=== PATIENT | female | born 1970 | race Caucasian/White ===

== ENCOUNTER → 2024-12-06 07:56 | Outpatient (REF) | payer BC, SELFPAY | LOC: HWWDC 07:56 | PROVIDERS: ATTENDING PHYSICIAN Obstetrics & Gynecology; FAMILY PHYSICIAN Family Medicine | DX: Z12.31 Encounter for screening mammogram for malignant neoplasm of breast (principal) | CPT/HCPCS: 77063; 77067 ==

== ENCOUNTER 2025-04-08 08:58 | Emergency (ER) | payer BC, SELFPAY ==
[2025-04-08 09:01] VITALS: BP 126/82
--- NOTE | 2025-04-08 09:22 | ED.GENMED ---
History of Present Illness
General
Chief Complaint: Abdominal Symptoms
Source: patient and significant other
Exam Limitations: none
Time Seen by Provider: 04/08/25 09:08
Nursing documentation reviewed up to this point in time: agreed with
History of Present Illness
History of Present Illness:
see MDM
Past History
Past History
ED Past Medical History: GERD, HTN and Other (sleep apnea)
ED Past Surgical History: Cholecystectomy and Orthopedic
Social History
Tobacco: Non-smoker
Alcohol: Occasional
Drug: None
Personal:
Living: with family
Employment: Employed
Review of Systems
Review of Systems
Allergies reviewed?: Yes
All Other Systems: Not applicable
Phy Exam
Physical Exam
Physical Exam:
GENERAL: Alert , in no apparent distress
EYE: pupils equal and reactive
NECK: Supple
ENT: o/p clr, dry mouth
CARDIAC: Regular rate and rhythm .
LUNGS: Clear breath sounds bilaterally, no acute respiratory distress, no wheezes/rales/rhonchi
ABDOMEN: Soft,, mild bloating without focal tenderness, no r/g, no cvat, normal bowel sounds
NEUROLOGICAL: Alert and oriented, no focal neuro deficits
SKIN: Warm and dry, skin intact.
MUSCULOSKELETAL: No edema, well perfused. neg sky's sign
PSYCH: Normal and appropriate interaction.
Course
Orders/Labs/Results
Orders:
Orders
04/08/25 09:15
Electrocardiogram (*1) Urgent
Reason for Study: Chest Pain
0.9% Sodium Chloride 1000 ml [Nss] 1,000 ml IV BOLUS
Famotidine [Pepcid] 20 mg IV NOW STA
Ondansetron Injectable [Zofran] 4 mg IV NOW STA
04/08/25 09:16
EKG- Treatment ONCE
04/08/25 09:36
Complete Blood Count/With Diff Urgent
Troponin I Urgent
04/08/25 09:42
Add On- LAB Urgent
Tests Added?: magnesium
04/08/25 11:13
Sucralfate Suspension [Carafate Suspension] 1 gm PO NOW STA
04/08/25 11:47
EKG- Treatment ONCE
04/08/25 11:59
0.9% Sodium Chloride 1000 ml [Nss] 1,000 ml IV BOLUS
04/08/25 12:10
Comprehensive Metabolic Panel Urgent
Lipase Urgent
Magnesium Urgent
04/08/25 12:24
Obstruct Series W/PA Chest [CR Obstruct Series W/pa Chest] Urgent
Comment:
Reason For Exam: abd bloating, vomiting, chst pain
04/08/25 12:30
Electrocardiogram (*1) Urgent
Reason for Study: Chest Pain
04/08/25 12:49
Troponin I Urgent
Abnormal Lab Results
04/08/25 04/08/25
09:36 12:10
WBC 11.0 H 10^3/uL
(4.8-10.8)
Hgb 16.4 H g/dL
(12.0-16.0)
MPV 10.6 H fL
(7.4-10.4)
Absolute Neuts (auto) 8.7 H 10^3/uL
(1.4-6.5)
Neutrophils % 79.1 H %
(42.2-75.2)
Lymphocytes % 13.7 L %
(20.5-51.1)
BUN 26 H mg/dl
(7-17)
Glucose 114 H mg/dl
(70-99)
04/08/25 09:36
04/08/25 12:10
Vital Signs
Initial and Last Documented VS:
Initial Vital Signs
Temp Pulse Resp BP Pulse Ox
36.6 C 94 18 126/82 100
04/08/25 09:01 04/08/25 09:01 04/08/25 09:01 04/08/25 09:01 04/08/25 09:01
Last Documented Vital Signs
Temp Pulse Resp BP Pulse Ox
36.8 C 72 13 122/70 100
04/08/25 14:24 04/08/25 15:00 04/08/25 14:22 04/08/25 14:22 04/08/25 14:45
MDM/Problems Addressed
Differential Diagnosis Includes:
see MDM
MDM/Problems Addressed:
Note:
CHIEF COMPLAINT(S)
Abdominal discomfort and nausea.
HISTORY OF PRESENT ILLNESS
The patient is a 54-year-old female who presents with N/V/D, chest pain. She reports a history of gastroesophageal reflux disease (GERD) and recent increase in antacid use over the past few weeks. but upped her zepbound dose (had the first dose for
4 weeks then increased last week, and had her 2nd shot of this new dose 3 days ago; started with nausea/bloating on 04/06 and then N/V/D many episodes; says yesterday she took a zofran and felt a little better and was able to tolerate gatorade. then
in the evening having more acid reflux sypmtoms so ate a playa bowl (smoothie bowl) and got much worse with n/v/d throughtout the night and dyspepsia.
she says this morning around 6 am in addition to the burning pain in her chest she started feeling a heaviness and soreness that is different, constant and is what brought her here. her last diarrhea was just before leaving the house; very watery;
She notes feeling dehydrated
no fever or focal abd pain
no black stools
ADDITIONAL HISTORY OBTAINED FROM SOURCES OTHER THAN THE PATIENT
According to the patients spouse, the patient was sweating and exhibiting shaking at the onset of symptoms last night. The spouse administered ondansetron (Zofran) and loperamide (Imodium) with partial symptomatic relief.
REVIEW OF SYSTEMS
- Gastrointestinal: Burning abdominal pain, bloating, belching, nausea, vomiting, diarrhea. No hematochezia.
- General: Reports dehydration.
- Cardiovascular: No chest pain.
PHYSICAL EXAM
Nursing notes reviewed and vital signs reviewed.
- Abdomen: No focal tenderness upon examination.
PLAN
Initiate treatment with medications for GERD symptoms. Administer fluids for rehydration. Conduct an ECG and perform blood work, including cardiac markers, due to risk factors for heart disease. Consider abdominal imaging only if liver markers or
other investigations indicate abnormalities.
DIFFERENTIAL DIAGNOSIS
The Differential Diagnosis includes, in no particular order and is not limited to:
1. Acute gastroenteritis
2. Peptic ulcer disease
3. Gastroesophageal reflux disease exacerbation
4. Cholecystitis
5. Pancreatitis
6. Gastritis
7. Biliary colic
8. Myocardial infarction
9. Esophageal spasm
10. Irritable bowel syndrome
04/08/25 - 11:54
The patient reports feeling slightly better but still experiencing dry lips and lack of appetite. Initial bloodwork results show normal white blood cell count and negative troponin test, ruling out a heart attack. Due to reported chest discomfort
starting around 6 p.m., a repeat troponin test is scheduled for confirmation. EKG revealed a subtle st abnormality; d/w ed attending, agree for 2 troponin r/o.
The patient experienced moderate relief with carapate but still has no appetite. Concerns for pancreatitis are noted due to GL1 use, and chemistry results are pending. The decision was made to administer another liter of intravenous fluids to
address dehydration. The patient is advised to report any worsening discomfort or recurrent vomiting.
1400 -
reassessed
xray indep reviewed, no obstruction
pt feels much better iwith 2nd liter
discomfort in chest resolved
requested carafate
will initiate pepcid and carafate
zofrna PRN
could be gastroenteritis vs side effects from zepbound
2nd torp neg
will place pt in chest pain hot line given her rf but i do believe this was dyspepsia related pain
return precautions
*Pulse Oximetry
SaO2: 100
Oxygen Mode of Delivery: Room air
*Critical Care Note
Total Time (30-74mins, 75-104mins- exclusive of procedures): Not Applicable
ED Attending Note
-
Portions of this chart may have been created with voice recognition software.� Occasional wrong word or��sound alike� substitutions may have occurred due to the inherent limitations of voice recognition software.
Discharge Plan
Departure
Patient Disposition: Home (Routine Discharge)
Date of Disposition: 04/08/25
Time of Disposition: 14:49
Patient with high blood pressure during this ER visit?: No
Condition: Fair
Covid-19: Not Applicable
Discharge Problem:
Gastroenteritis, GERD (gastroesophageal reflux disease), Chest pain
Instructions: Viral gastroenteritis in adults, Chest Pain DCA Follow Up
Prescriptions:
New
sucralfate [Carafate] 100 mg/mL suspension
10 ml PO ACHS PRN (Reason: dyspepsia) Qty: 300 0RF
famotidine [Pepcid] 20 mg tablet
20 mg PO BID Qty: 14 0RF
ondansetron 4 mg tablet,disintegrating
4 mg PO Q8H PRN (Reason: nausea and vomiting) 2 Days Qty: 7 0RF
Referrals:
Joceline Mitchell DO [Family Provider, Family Practice] - Follow up in 2-3 days
Activity Restrictions/Additional Instructions:
You likely either have a side effect of the Zepbound or a viral stomach infection. Either way you were feeling better after fluids, Zofran and Carafate. I also gave you Pepcid. You should really focus on oral hydration today and avoiding anything
spicy or heavy. You can try soup and advance your diet as tolerated. If you vomit you can take Zofran every 8 hours. For the GERD symptoms you can take Pepcid twice a day for a week. You may want to consider calling her GI doctor again given
these symptoms flaring up. Also you can try Carafate 2-3 times a day as needed. Your EKG was subtly abnormal but you had 2 negative troponin enzymes and this does not suggest that there is any cardiac emergency but I did reach out to the
substance abuse therapist group to have you follow-up with them. Your x-ray did not show any significant concerns, there was a little bit of enlargement of your heart which could be related to chronic blood pressure issues. And is a nonspecific finding.
Have a low threshold for returning like worsening abdominal pain, fever, worsening chest pain or shortness of breath, passing out, vomiting blood, dehydration etc.
Interventions
Interventions:
*Risk Screen - Suicide Last Done: 04/08/25 09:01
*General Assessment Last Done: 04/08/25 09:01
*Neglect/Abuse Screening Last Done: 04/08/25 09:01
*ED- Fall Risk Assessment Last Done: 04/08/25 09:24
*ED COVID-19 Vaccine History Last Done: 04/08/25 09:24
*Nursing Disposition Last Done: 04/08/25 15:10
VG-Zcnivn-[id number] Assessment Last Done: 04/08/25 09:46
Discharge Date and Time
Discharge Date/Time: 04/08/25 15:15
Print Language: LIBYAN
[2025-04-08] MEDS: NSS 1000 IV ×2 (09:34→12:00)
[2025-04-08] MEDS: PEPCID 20 MG IV (09:35)
[2025-04-08] MEDS: ZOFRAN 4 MG IV (09:35)
[2025-04-08 09:38] VITALS: BP 111/84
[2025-04-08 09:47] LABS: % Basophils 0.2 % (0-2); % Eosinophils 1.6 % (0-6); % Immature Granulocytes 0.3 % (0-0.5); % Lymphocytes 13.7 % (20.5-51.1); % Monocytes 5.1 % (1.7-9.3); % Neutrophils 79.1 % (42.2-75.2); Absolute Eosinophils 0.2 10^3/uL (0-0.7); Absolute Lymphocytes 1.5 10^3/uL (1.2-3.4); Absolute Monocytes 0.6 10^3/uL (0.1-0.6); Absolute Neutrophils 8.7 10^3/uL (1.4-6.5); Hematocrit 45.3 % (37.0-47.0); Hemoglobin 16.4 g/dL (12.0-16.0); Mean Corp Hgb Conc. 36.2 g/dL (33.0-37.0); Mean Corpuscular Hgb 30.8 pg (27.0-31.0); Mean Corpuscular Volume 85.2 fL (81.0-99.0); Mean Platelet Volume 10.6 fL (7.4-10.4); Nucleated Red Blood Cells % 0 %; Platelet Count 334 10^3/uL (130-400); Red Blood Cell Count 5.32 10^6/uL (4.20-5.40); Red Cell Dist. Width 13.1 % (11.5-14.5)
[2025-04-08 10:00] VITALS: BP 113/71
[2025-04-08 10:27] LABS: Troponin I < 0.012 ng/ml
[2025-04-08 11:00] VITALS: BP 112/77
[2025-04-08] MEDS: CARAFATE SUSPENSION 1 GM PO (11:20)
[2025-04-08 12:41] LABS: ALT (SGPT) 23 U/L (0-35); AST (SGOT) 25 U/L (14-36); Albumin 4.5 g/dl (3.5-5.0); Alkaline Phosphatase 61 U/L (38-126); Blood Urea Nitrogen 26 mg/dl (7-17); Calcium 9.6 mg/dl (8.4-10.2); Carbon Dioxide 23 mmol/L (22-30); Chloride 107 mmol/L (98-107); Glucose 114 mg/dl (70-99); Lipase 84 U/L (23-300); Magnesium 1.9 mg/dl (1.6-2.3); Potassium 3.6 mmol/L (3.5-5.1); Sodium 138 mmol/L (135-145); Total Protein 7.5 g/dl (6.3-8.2); eGFR > 60.00
[2025-04-08 13:38] LABS: Troponin I < 0.012 ng/ml
[2025-04-08 14:22] VITALS: BP 122/70
== END 2025-04-08 15:15 | disposition home or self-care (01) ==
LOC: EMR 08:58
PROVIDERS: Physician Assistant; EMERGENCY PHYSICIAN Emergency Medicine; FAMILY PHYSICIAN Family Medicine
DX: R07.89 Other chest pain (principal); R11.2 Nausea with vomiting, unspecified; R19.7 Diarrhea, unspecified; R68.2 Dry mouth, unspecified; R25.1 Tremor, unspecified; K21.9 Gastro-esophageal reflux disease without esophagitis; K52.9 Noninfective gastroenteritis and colitis, unspecified; I10 Essential (primary) hypertension; G47.30 Sleep apnea, unspecified; Z90.49 Acquired absence of other specified parts of digestive tract; Z88.8 Allergy status to other drugs, medicaments and biological substances
CPT/HCPCS: 99284; 96374; 96375; 96361 ×2; 74022; 80053; 83690; 83735; 84484; 85025; 93005

== ENCOUNTER → 2025-06-05 07:06 | Outpatient (REF) | payer BC, SELFPAY | LOC: RCS 07:06 | PROVIDERS: ATTENDING PHYSICIAN Internal Medicine Cardiovascular Disease; FAMILY PHYSICIAN Family Medicine | DX: R94.31 Abnormal electrocardiogram [ECG] [EKG] (principal); R07.2 Precordial pain | CPT/HCPCS: 93306 ==

== ENCOUNTER → 2025-06-06 07:54 | Outpatient (REF) | payer BC, SELFPAY | LOC: HWRCS 07:54 | PROVIDERS: ATTENDING PHYSICIAN Internal Medicine Cardiovascular Disease; FAMILY PHYSICIAN Family Medicine | DX: R94.31 Abnormal electrocardiogram [ECG] [EKG] (principal); R07.2 Precordial pain | CPT/HCPCS: 78452; 93017; A9500 ==